=== PATIENT | male | born 1975 | race Caucasian/White ===

== ENCOUNTER 2022-03-25 12:33 | Day surgery (SDC) | payer OTHER ==
[~2022-03-25] VITALS: Ht 182.9 cm; Wt 90.3 kg
[~2022-03-25 12:33] MED LIST: CELE1CAP7 PO; NS 1,000 ML IV ONE; ZONI25CA13 PO
[2022-03-25] MEDS ORDERED: NAPR-832 PO (13:02)
[2022-03-25] MEDS ORDERED: LIDOCAINE 2% INJ 100 MG/5 ML SYRINGE As Ordered ONE (14:11)
[2022-03-25] MEDS ORDERED: propofoL 200 MG/20 ML VIAL As Ordered ONE ×2 (14:11→14:38)
[2022-03-25 14:45] VITALS: BP 120/62
== END 2022-03-25 14:53 | disposition home or self-care (01) ==
LOC: M OPP 12:33
PROVIDERS: ATTEND Internal Medicine Gastroenterology
DX: Z12.11 Encounter for screening for malignant neoplasm of colon (principal); K64.0 First degree hemorrhoids; Z79.1 Long term (current) use of non-steroidal anti-inflammatories (NSAID); Z79.899 Other long term (current) drug therapy; E78.00 Pure hypercholesterolemia, unspecified

== ENCOUNTER 2022-08-08 20:22 | Emergency (ER) | payer OTHER ==
[~2022-08-08] VITALS: Ht 182.9 cm; Wt 87.7 kg
[~2022-08-08 20:22] MED LIST changes: +NAPR-832 PO; -NS 1,000 ML IV ONE
[2022-08-08 21:22] LABS: BASO # 0.1 10^3/uL (0.0-0.2); BASO % 0.8 % (0.0-1.0); EOS # 0.1 10^3/uL (0.0-0.5); EOS % 0.9 % (0.0-3.0); HEMATOCRIT 47.7 % (42.0-52.0); HEMOGLOBIN 15.8 g/dl (13.5-17.5); LYMPH # 3.1 10^3/uL (1.5-5.0); LYMPH % 33.6 % (24.0-44.0); MEAN CORPUSCULAR HEMOGLOBIN 29.8 pg (27.0-33.0); MEAN CORPUSCULAR HGB CONC 33.1 g/dl (32.0-36.5); MONO # 0.7 10^3/uL (0.0-0.8); MONO % 7.7 % (2.0-8.0); NEUTROPHILS # 5.2 10^3/uL (1.5-8.5); NEUTROPHILS % 56.6 % (36.0-66.0); PLATELET COUNT, AUTOMATED 213 10^3/uL (150-450); WHITE BLOOD COUNT 9.1 10^3/uL (4.0-10.0)
[2022-08-08 21:34] LABS: INR 0.88; PROTHROMBIN TIME 12.1 SECONDS (12.5-14.5)
[2022-08-08 21:35] LABS: PARTIAL THROMBOPLASTIN TIME 27.2 SECONDS (24.8-34.2)
[2022-08-08 21:47] LABS: LIPASE 39 U/L (12-53)
[2022-08-08 21:50] LABS: CPK CREATINE PHOSPHOKINASE 75 U/L (46-171)
[2022-08-08 21:53] LABS: ALKALINE PHOSPHATASE 65 U/L (46-116); ALT/SGPT 36 U/L (7.0-40); AST/SGOT 20 U/L (<34); BILIRUBIN,DIRECT 0.2 MG/DL (<0.4); BILIRUBIN,TOTAL 0.6 MG/DL (0.3-1.2); BLOOD UREA NITROGEN 17 MG/DL (9-23); CALCIUM LEVEL 9.1 MG/DL (8.5-10.1); CARBON DIOXIDE LEVEL 26 MMOL/L (20-31); CHLORIDE LEVEL 108 MMOL/L (98-107); CK-MB VALUE MASS < 1.0 NG/ML (<3.6); CREATININE FOR GFR 0.98 MG/DL (0.70-1.30); GLOMERULAR FILTRATION RATE > 60.0 (>60); GLUCOSE, FASTING 80 MG/DL (60-100); MB/CK RELATIVE INDEX 1.33 (< OR =4); POTASSIUM SERUM 3.7 MMOL/L (3.5-5.1); SODIUM LEVEL 142 MMOL/L (136-145); TOTAL PROTEIN 6.3 G/DL (5.7-8.2)
[2022-08-08] MEDS ORDERED: ISOVUE-370 76% 100ML VIAL As Ordered ONE (22:18)
[2022-08-08 23:03] LABS: CK-MB VALUE MASS < 1.0 NG/ML (<3.6)
[2022-08-08 23:15] LABS: CPK CREATINE PHOSPHOKINASE 66 U/L (46-171); MB/CK RELATIVE INDEX 1.51 (< OR =4)
[2022-08-09] VITALS: BP 129/65
== END 2022-08-09 00:48 | disposition home or self-care (01) ==
LOC: M ED 20:22 → EDBD 20:22 → M ED 08-09 00:48
DX: R07.89 Other chest pain (principal); R42 Dizziness and giddiness; F41.9 Anxiety disorder, unspecified; G89.29 Other chronic pain; N28.1 Cyst of kidney, acquired